=== PATIENT | female | born 1975 | race Caucasian/White ===

== ENCOUNTER 2023-11-01 15:06 | Emergency (ER) | payer OTHER ==
[2023-11-01 15:18] VITALS: BP 121/81; PULSE 87; RESP 18; TEMP 96.8; BMI 29.4
== END 2023-11-01 17:19 | disposition home or self-care (01) ==
LOC: JERFT 15:06
PROC: 0H9QXZZ Drainage of Finger Nail, External Approach (ICD-10-PCS; principal; 2023-11-01)
DX: S90.112A Contusion of left great toe without damage to nail, initial encounter (principal); L03.032 Cellulitis of left toe; W20.8XXA Other cause of strike by thrown, projected or falling object, initial encounter
CPT/HCPCS: 73660-TC-LT-FY; 99283-25

== ENCOUNTER 2024-12-25 16:53 | Emergency (ER) | payer OTHER ==
[2024-12-25 17:06] VITALS: PULSE 87; RESP 16; TEMP 98.6; BMI 30.7
[2024-12-25] MEDS ORDERED: ACETAMINOPHEN 325 MG TABLET (FP) ONE (17:48)
[2024-12-25] MEDS ORDERED: KETOROLAC TROMETHAMINE 30 MG/1 ML VIAL ONE (17:49)
[2024-12-25] MEDS: KETOROLAC TROMETHAMINE 30 MG/1 ML VIAL IM ONE (17:56)
[2024-12-25] MEDS: ACETAMINOPHEN 500 MG TABLET (FP) PO ONE ×2 (17:57)
[2024-12-25] MEDS ORDERED: CycloBENZAprine HCL 10 MG TABLET (FP) ONE (18:51)
[2024-12-25] MEDS: CycloBENZAprine HCL 10 MG TABLET (FP) PO ONE (18:54)
[2024-12-25 20:25] VITALS: BP 141/95
== END 2024-12-25 21:50 | disposition home or self-care (01) ==
LOC: JER 16:53
PROC: 3E0233Z Introduction of Anti-inflammatory into Muscle, Percutaneous Approach (ICD-10-PCS; principal; 2024-12-25)
DX: R07.2 Precordial pain (principal); M25.511 Pain in right shoulder; M54.6 Pain in thoracic spine; V43.62XA Car passenger injured in collision with other type car in traffic accident, initial encounter; Y92.410 Unspecified street and highway as the place of occurrence of the external cause
CPT/HCPCS: 71046-TC-FY; 71111-TC-FY; 73030-TC-RT-FY; 93005; 93010; 99284-25